=== PATIENT | female | born 1975 | race African-American/Black ===

== ENCOUNTER 2019-07-04 12:18 | Inpatient (IN) ==
[2019-07-04] MEDS ORDERED: MAALOX PLUS LIQUID PO PRN (14:09)
[2019-07-04] MEDS ORDERED: TYLENOL PO PRN (14:09)
[2019-07-04] MEDS ORDERED: IMODIUM PO PRN ×2 (14:09)
[2019-07-04] MEDS ORDERED: PHENOBARBITAL IV PRN (14:09)
[2019-07-04] MEDS ORDERED: D5W 1,000 ML IV PRN (14:09)
[2019-07-04] MEDS ORDERED: TUBERSOL ID ONE (14:09)
[2019-07-04] MEDS ORDERED: DULCOLAX PR PRN (14:09)
[2019-07-04] MEDS ORDERED: ZOFRAN IM PRN (14:09)
[2019-07-04] MEDS ORDERED: NICODERM PATCH TD PRN (14:09)
[2019-07-04] MEDS ORDERED: NICOTINE GUM BUCCAL PRN (14:09)
[2019-07-04 14:43] LABS: URINE SOURCE CLEAN CATCH
[2019-07-04 14:57] LABS: HEMATOCRIT 30.4 % (37.0-47.0); HEMOGLOBIN 9.7 g/dL (12.0-16.0); MCHC 31.9 g/dL (33-37); MCV 90.7 FL (81-99); MPV 10.3 FL (7.4-10.4); RBC 3.35 XMIL (4.2-5.4); RDW 17.4 % (11.5-14.5); WBC 5.64 X1000 (4.8-10.8)
[2019-07-04 15:00] LABS: BILIRUBIN URINE 1+ (NEGATIVE); CLARITY CLEAR (CLEAR); COLOR AMBER; GLUCOSE URINE NEGATIVE (NEGATIVE)
[2019-07-04 15:01] LABS: BLOOD URINE 3+ (NEGATIVE); KETONE URINE 1+(Small) mg/dL (NEGATIVE); LEUKOCYTES URINE TRACE (NEGATIVE); NITRITE URINE NEGATIVE (NEGATIVE); PH URINE 6.5; PROTEIN URINE 1+(30 mg/dL) mg/dL (NEGATIVE); UROBILINOGEN URINE 4 mg/dL
[2019-07-04 15:02] LABS: URINE BACTERIA 1+ /HFP; URINE EPITHELIAL CELLS >10 /HPF (<10); URINE RBC <10 /HPF (<10); URINE WBC <10 /HPF (<10)
[2019-07-04 15:06] LABS: UR AMPHETAMINES QUAL NONE DETECTED (NONE DETECT); UR BARBITUATES QUAL NONE DETECTED (NONE DETECT); UR BENZODIAZEPIN QUAL NONE DETECTED (NONE DETECT); UR CANNABINOIDS QUAL NONE DETECTED (NONE DETECT); UR COCAINE QUAL NONE DETECTED (NONE DETECT); UR METHADONE QUAL NONE DETECTED (NONE DETECT); UR METHAMPHETAMINE QUAL NONE DETECTED (NONE DETECT); UR OPIATES QUAL NONE DETECTED (NONE DETECT); UR OXYCODONE QUAL NONE DETECTED (NONE DETECT); UR PCP QUAL NONE DETECTED (NONE DETECT); UR PROPOXYPHENE QUAL NONE DETECTED (NONE DETECT); UR TCA QUAL NONE DETECTED (NONE DETECT)
[2019-07-04 15:17] LABS: AGAP 14; ALBUMIN 4.5 g/dL (3.5-5.0); ALKALINE PHOSPHATASE 120 U/L (32-104); AMYLASE 37 U/L (20-200); BUN 10 mg/dL (8-22); CALCIUM 8.3 mg/dL (8.8-10.2); CHLORIDE 101 mmol/L (98-107); COSMO 274; CREATININE 0.9 mg/dL (0.5-0.9); ESTIMATED GFR > 60; GLUCOSE 94 mg/dL (70-104); GOT 26 U/L (10-30); GPT 8 U/L (10-36); LIPASE 13 U/L (13-60); POTASSIUM 3.9 mmol/L (3.5-5.1); SODIUM 138 mmol/L (136-145); TCO2 23 mmol/L (25-35); TOTAL PROTEIN 7.5 g/dL (6.3-8.3)
[2019-07-04 15:20] LABS: INR 0.97; PROTIME 13.4 Seconds (11.0-16.0)
[2019-07-04] MEDS: SENOKOT PO PRN (16:15)
[2019-07-04] MEDS ORDERED: BENTYL PO PRN (16:51)
[2019-07-04] MEDS ORDERED: SALINE LOCK IV FLUID XX ONE (16:51)
[2019-07-04] MEDS: LIBRIUM PO SCH ×3 (17:11→22:04)
[2019-07-04] MEDS: ZOFRAN IV PRN (17:20)
[2019-07-04] MEDS ORDERED: M.V.I.-12 10 ML, FOLIC ACID 1 MG, MAGNESIUM SULFATE 1 GM, THIAMINE 100 MG in NS 1,000 ML IV ONE (18:00)
[2019-07-04] MEDS: ATARAX PO PRN (19:44)
[2019-07-04] MEDS: TRILEPTAL PO SCH (22:04)
[2019-07-04] MEDS: DESYREL PO PRN (22:04)
[2019-07-05] MEDS: PROTONIX PO SCH (06:23)
[2019-07-05] MEDS: LIBRIUM PO SCH ×4 (06:23→20:37)
[2019-07-05] MEDS ORDERED: NS 1,000 ML IV SCH (08:30)
[2019-07-05] MEDS ORDERED: SALINE LOCK IV FLUID XX ONE (08:40)
[2019-07-05] MEDS ORDERED: SODIUM CHLORIDE 0.9% INJ PRN (08:42)
[2019-07-05] MEDS: FOLIC ACID PO SCH (09:29)
[2019-07-05] MEDS: VITAMIN B-1 PO SCH (09:29)
[2019-07-05] MEDS: THERA M PLUS PO SCH (09:30)
[2019-07-05] MEDS: PHENERGAN IV PRN (10:38)
--- NOTE | 2019-07-05 11:28 | PROGRESS NOTE ---
DATE: 07/05/2019 SUBJECTIVE: Patient notes that she feels terrible. Started having nausea vomiting last night. States this is typically part of her withdrawal symptoms. Denies any fevers or chills. Denies any blood in her emesis. Denies diarrhea, constipation. PHYSICAL EXAMINATION: Vital Signs: Reviewed. Temp 99 degrees, pulse 95, respiratory rate 18, BP 123/74. General: Patient is awake. She is pleasant. She is in no respiratory distress, but is still somewhat ill-appearing due to her nausea and abdominal pain. HEENT: Normocephalic. Neck: Supple. Cardiovascular: Regular rate. Chest: Clear. Abdomen: Soft, nondistended. Extremities: Moves all extremities. ASSESSMENT: 1. Nausea and vomiting. 2. Abdominal pain. 3. Myalgias. 4. Tremors. 5. Alcohol abuse withdrawal and stabilization. PLAN: We will continue patient in the hospital. Continue to follow. We will restart IV fluids. We will add Phenergan. We will continue to follow. Further orders as needed. cc: Edmond Morris MD
[2019-07-05] MEDS: ROBAXIN PO PRN (12:22)
[2019-07-05] MEDS: ATARAX PO PRN ×2 (16:38→22:00)
[2019-07-05] MEDS: TRILEPTAL PO SCH (22:00)
[2019-07-05] MEDS: SEROQUEL PO PRN (22:00)
[2019-07-06] MEDS: LIBRIUM PO SCH ×4 (02:59→20:56)
[2019-07-06] MEDS: DESYREL PO PRN (03:05)
[2019-07-06] MEDS: PROTONIX PO SCH ×2 (06:49→08:32)
[2019-07-06] MEDS: ATARAX PO PRN ×2 (08:31→16:29)
[2019-07-06] MEDS: THERA M PLUS PO SCH (08:31)
[2019-07-06] MEDS: ROBAXIN PO PRN ×3 (08:31→22:44)
[2019-07-06] MEDS: ZOFRAN IV PRN (08:31)
[2019-07-06] MEDS: FOLIC ACID PO SCH (08:31)
[2019-07-06] MEDS: VITAMIN B-1 PO SCH (08:32)
[2019-07-06] MEDS ORDERED: LIBRIUM PO ONE (13:18)
--- NOTE | 2019-07-06 14:13 | PROGRESS NOTE ---
DATE: 07/06/2019 SUBJECTIVE: The patient states that she is very depressed. She has had issues with bipolar in the past, and is currently on medication for this. Notes that she is still nauseated, still has an upset stomach. No diarrhea, constipation, melena. Denies any fevers or chills. PHYSICAL EXAMINATION: Vital Signs: Reviewed. Temperature 97 degrees, pulse 18, respiratory rate 20, BP 126/63. General: The patient is awake. She is in no distress. HEENT: Normocephalic. Neck: Supple. Cardiovascular: Regular rate. Chest: Clear. Abdomen: Soft. Extremities: Moves all extremities. ASSESSMENT: 1. Nausea and vomiting. 2. Abdominal pain. 3. Myalgias. 4. Paresthesias. 5. Paroxysmal sweating. 6. Alcohol abuse withdrawal and stabilization. PLAN: Will continue the patient in the hospital. Will continue to follow. Will continue high- dose Librium taper. Further orders as needed. cc: Edmond Morris MD
[2019-07-06] MEDS: ZOFRAN ODT PO PRN (16:23)
[2019-07-06] MEDS: TRILEPTAL PO SCH (20:56)
[2019-07-06] MEDS: SEROQUEL PO PRN (22:25)
[2019-07-07] MEDS: LIBRIUM PO SCH ×4 (04:09→20:28)
[2019-07-07] MEDS: PROTONIX PO SCH (06:37)
[2019-07-07] MEDS: FOLIC ACID PO SCH (10:22)
[2019-07-07] MEDS: VITAMIN B-1 PO SCH (10:22)
[2019-07-07] MEDS: THERA M PLUS PO SCH (10:22)
[2019-07-07] MEDS: ZOFRAN ODT PO PRN (10:22)
[2019-07-07] MEDS: ROBAXIN PO PRN ×2 (11:05→22:14)
--- NOTE | 2019-07-07 15:27 | HISTORY AND PHYSICAL ---
CHIEF COMPLAINT: Nausea, vomiting. HISTORY OF PRESENT ILLNESS: The patient is a 43-year-old female who presented to [facility] [place] [facility] secondary to nausea, vomiting, abdominal pain. She is noted to have tremors and sweating. States she has not been able to keep anything down for the past couple of days. States that normally her symptoms continued to worsen from here, which makes her have to start drinking again to alleviate said symptoms. SOCIAL HISTORY: Patient is . She is currently unemployed. Lives at home in [place]. PAST MEDICAL HISTORY: She has had right ankle fracture from a fall secondary to drinking. 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 She was recently diagnosed as bipolar. She has had seizures as well as blackouts secondary to alcohol and alcohol withdrawal. She did have blood in her emesis a few days ago when she was violently vomiting. After starting drinking again, the blood disappeared. MEDICATIONS: 1. Trazodone. 2. Hydroxyzine. 3. [*]300 mg 2 tablets at bedtime. ALLERGIES: No known drug allergies. REVIEW OF SYSTEMS: CIWA score is elevated at 28 secondary to nausea, vomiting, paroxysmal sweating, tremors, history of blackouts and history of seizures due to alcohol withdrawal. She has had decreased oral intake, decreased appetite. Denies any fevers or chills. Denies cough, congestion, headaches, blurred vision, change in her vision. Denies any focalized numbness, tingling, weakness in her extremities, although does note that she has been generally weak, has been falling, which is due to alcohol. SUBSTANCE ABUSE HISTORY: The patient was in [place] in 2010 for 17 days, relapsed in about 3 months. She was in [place], [place] for 30 days, relapsed in 3 months from March through June. She was in [facility] outpatient and relapsed again in 2 weeks. She notes that she quit her job recently due to her alcoholism. She has had social issues as well as financial issues. She has been binge drinking every day. Started drinking at 17, currently drinks up to 24 wine coolers and beer off and on daily as long as she can afford them. FAMILY HISTORY: Noncontributory. PHYSICAL EXAMINATION: VITAL SIGNS: Reviewed. The patient is awake, alert. She is in no current respiratory distress, but she is obviously somewhat ill-appearing. She has got visible tremors, visible sweating. She is difficult to concentrate and to follow directions. She is fidgeting, constantly bouncing back and forth in the hospital bed. HEENT: Normocephalic, atraumatic. GAGANDEEP. NECK: Supple. CARDIOVASCULAR: Regular rate. No murmurs. CHEST: Clear, nonlabored. ABDOMEN: Soft, nondistended. EXTREMITIES: Dictation ends here. . cc: Edmond Morris MD
--- NOTE | 2019-07-07 19:35 | PROGRESS NOTE ---
DATE: 07/07/2019 SUBJECTIVE: Patient notes that overall she is feeling a little bit better, still nauseated. No tremors, no myalgias. Still does not feel completely back to normal. OBJECTIVE: Vital Signs: Reviewed. Temperature 98.3 degrees, pulse 75, respiratory rate 18, BP 121/70. General: Patient is awake. She is in no distress. She is sitting on side of the bed. HEENT: Normocephalic. Neck: Supple. Cardiovascular: Regular rate. Chest: Clear. Abdomen: Soft. Extremities: Moves all extremities. ASSESSMENT: 1. Nausea, vomiting, abdominal pain. 2. Myalgias. 3. Paresthesias. 4. Paroxysmal sweating. 5. Alcohol abuse withdrawal and stabilization. PLAN: We will continue patient in the hospital. Continue to follow. We will wean Librium. Further orders as needed. cc: Edmond Morris MD
[2019-07-07] MEDS: TRILEPTAL PO SCH (20:28)
[2019-07-07] MEDS: SENOKOT PO PRN (20:28)
[2019-07-07] MEDS: SEROQUEL PO PRN (22:14)
[2019-07-07] MEDS: MOTRIN PO PRN (22:14)
[2019-07-08] MEDS: LIBRIUM PO SCH ×4 (03:51→20:15)
[2019-07-08] MEDS: PROTONIX PO SCH (06:26)
[2019-07-08] MEDS: FOLIC ACID PO SCH (08:15)
[2019-07-08] MEDS: THERA M PLUS PO SCH (08:16)
[2019-07-08] MEDS: VITAMIN B-1 PO SCH (08:16)
[2019-07-08] MEDS: ZOFRAN ODT PO PRN (08:30)
[2019-07-08] MEDS: ROBAXIN PO PRN ×3 (08:30→21:50)
[2019-07-08] MEDS: ATARAX PO PRN ×3 (08:30→21:50)
[2019-07-08] MEDS: MOTRIN PO PRN (17:28)
--- NOTE | 2019-07-08 20:19 | PROGRESS NOTE ---
DATE: 07/08/2019 SUBJECTIVE: Patient notes she still does not feel normal. Still has some tremors and myalgias. Denies any fevers or chills. PHYSICAL EXAMINATION: Vital Signs: She is afebrile. Vital signs reviewed. General: She is awake, alert. HEENT: Normocephalic. Neck: Supple. Cardiovascular: Regular rate. Chest: Clear. Abdomen: Soft. Extremities: Moves all extremities. ASSESSMENT: 1. Nausea vomiting abdominal pain. 2. Myalgias. 3. Paresthesias. 4. Paroxysmal sweating. 5. Alcohol abuse withdrawal and stabilization. PLAN: We are going to try a small dose of naltrexone today. If she tolerates, we will give her Vivitrol. We will decrease her Librium. Possibly home this afternoon if her symptoms improve. cc: Edmond Morris MD
[2019-07-08] MEDS: PHENERGAN IV PRN (21:50)
[2019-07-08] MEDS: TRILEPTAL PO SCH (21:50)
[2019-07-08] MEDS: SEROQUEL PO PRN (22:05)
[2019-07-09] MEDS: PROTONIX PO SCH (06:06)
[2019-07-09 08:10] VITALS: BP 129/73
[2019-07-09] MEDS ORDERED: REVIA PO SCH (09:00)
[2019-07-09] MEDS: LIBRIUM PO SCH (09:05)
[2019-07-09] MEDS: ZOFRAN ODT PO PRN (09:05)
[2019-07-09] MEDS: ROBAXIN PO PRN (09:05)
[2019-07-09] MEDS: FOLIC ACID PO SCH (09:05)
[2019-07-09] MEDS: THERA M PLUS PO SCH (09:05)
[2019-07-09] MEDS: VITAMIN B-1 PO SCH (09:05)
== END 2019-07-09 11:30 | disposition home or self-care (01) | DRG 897 ==
LOC: P.DIRADM 12:18 → P.MEDSURG 12:21
PROVIDERS: ADMIT Family Medicine; ATTEND Family Medicine